=== PATIENT | female | born 1995 | race Caucasian/White ===

== ENCOUNTER 2019-08-05 16:39 | Emergency (ER) | payer BC ==
[~2019-08-05] VITALS: Ht 162.6 cm; Wt 48.1 kg
[2019-08-05 16:43] VITALS: BP_SYST 125
--- NOTE | 2019-08-05 17:05 | NUR ---
Note mo in EDM - 08/05/19 at 1712 by SARTHAK Patient presented to ER with vaginal cramping and spotting today. Patient A&Ox4, afebrile, skin pink and warm, ambulatory to ER, arrived with . Patient stated she had spotting and cramping today, she contacted OB office. OB office referred pt to ER. Patient denies pain at this time, denies cramping at this time, patient denies spotting at this time.
--- NOTE | 2019-08-05 17:05 | NUR ---
Patient presented to ER with vaginal cramping and spotting today, 7 weeks . Patient A&Ox4, afebrile, skin pink and warm, ambulatory to ER, arrived with . Patient stated she had spotting and cramping today, she contacted OB office. OB office referred pt to ER. Patient denies pain at this time, denies cramping at this time, patient denies spotting at this time.
--- NOTE | 2019-08-05 17:08 | NUR ---
venipuncture at bedside for lab specimen collection
--- NOTE | 2019-08-05 17:10 | NUR ---
CONI Alas examining patient.
--- NOTE | 2019-08-05 17:28 | NUR ---
Patient to radiology with staff.
[2019-08-05 17:45] LABS: CALCIUM 9.1 mg/dL (8.4-11.0); POTASSIUM 3.5 mmol/L (3.5-5.1)
[2019-08-05 17:46] LABS: CREATININE 0.59 mg/dL (0.55-1.30)
[2019-08-05 17:48] LABS: BASOPHILS % (AUTO) 0.2 % (0.0-2.0); EOSINOPHILS # (AUTO) 0.2 K/uL (0.0-0.4); EOSINOPHILS % (AUTO) 2.2 % (0.0-4.0); HEMATOCRIT 38.3 % (36-48); HEMOGLOBIN 13.3 g/dL (12.0-16.0); LYMPHOCYTES # (AUTO) 2.4 K/uL (1.0-5.5); LYMPHOCYTES % (AUTO) 21.4 % (20.5-51.5); MEAN CORPUSCULAR HEMOGLOBIN 31 pg (27-31); MEAN CORPUSCULAR HGB CONC 35 % (32-36); MEAN CORPUSCULAR VOLUME 90 fL (79.0-98.0); MONOCYTES # (AUTO) 0.5 K/uL (0.0-1.0); MONOCYTES % (AUTO) 4.7 % (1.7-9.3); NEUTROPHILS # (AUTO) 7.8 K/uL (1.8-7.7); NEUTROPHILS % (AUTO) 71.5 % (40.0-70.0); PLATELET COUNT (AUTO) 330 K/uL (130-430); RED BLOOD CELL COUNT(AUTO) 4.24 MIL/uL (4.2-6.2); RED CELL DISTRIBUTION WIDTH 12.6 % (9.0-15.0)
[2019-08-05 18:00] LABS: CLARITY/URINE CLEAR (CLEAR); COLOR,URINE YELLOW (YELLOW); PH,URINE 5.5 (5.0-8.0)
[2019-08-05 18:01] LABS: BILIRUBIN,URINE NEGATIVE (NEGATIVE); BLOOD, URINE NEGATIVE (NEGATIVE); GLUCOSE,URINE NEGATIVE (NEGATIVE); KETONES,URINE NEGATIVE (NEGATIVE); LEUKOCYTE ESTERASE ,URINE TRACE (NEGATIVE); NITRITE, URINE NEGATIVE (NEGATIVE); PROTEIN URINE NEGATIVE (NEGATIVE); UROBILINOGEN,URINE 0.2 (0.2-1.0)
[2019-08-05 18:12] LABS: TOTAL BILIRUBIN 0.3 mg/dL (0.0-1.0)
[2019-08-05 18:16] LABS: BACTERIA,URINE FEW /HPF (None Seen); MUCUS,URINE None Seen /LPF (None Seen); RBC,URINE 0-3 /HPF (0-3); WBC,URINE 0-3 /HPF (0-3)
[2019-08-05] MEDS ORDERED: NITROFURANTOIN MONOHYD/M-CRYST 100 MG CAPSULE PO ONE (19:00)
[2019-08-05 19:05] VITALS: BP_SYST 122
--- NOTE | 2019-08-05 19:05 | NUR ---
Patient given written and verbal discharge instructions and verbalizes understanding. ER MD discussed with patient the results and treatment provided. Patient in stable condition. ID arm band removed. Rx of MACROBID given. Patient educated on pain management and to follow up with PMD. Pain Scale 0/10. Opportunity for questions provided and answered. Medication side effect fact sheet provided.
--- NOTE | 2019-08-05 19:11 | NUR ---
Rhonda hassan in [facility] - 08/05/19 at 1912 by SDEDTD REPORT TO EVE FLORIAN
== END 2019-08-05 19:05 | disposition home or self-care (01) ==
LOC: SED 16:39
DX: O20.0 Threatened abortion (principal); O23.11 Infections of bladder in pregnancy, first trimester; O26.891 Other specified pregnancy related conditions, first trimester; D72.829 Elevated white blood cell count, unspecified; R03.0 Elevated blood-pressure reading, without diagnosis of hypertension; Z3A.01 Less than 8 weeks gestation of pregnancy
CPT/HCPCS: 36415; 76801; 76817; 80053; 81000-TC; 81025; 84702-TC; 85025; 86900; 86901; 87086; 99284

== ENCOUNTER 2022-10-02 16:29 | Emergency (ER) | payer SELFPAY ==
[~2022-10-02] VITALS: Ht 162.6 cm; Wt 49.0 kg
[2022-10-02 16:37] VITALS: BP_SYST 121
--- NOTE | 2022-10-02 16:40 | NUR ---
Patient triaged and placed in waiting room. VSS and patient appears in no acute distress at this time. Accompanied by SELF, awaiting available bed, and MD notified of need for MSE.
--- NOTE | 2022-10-02 17:10 | NUR ---
ER DR. MIRELES EXAMINING PT IN TRIAGE
[2022-10-02] MEDS ORDERED: KETOROLAC TROMETHAMINE 30 MG VIAL IM ONE (17:45)
[2022-10-02] MEDS ORDERED: AUG875 PO (17:46)
[2022-10-02] MEDS ORDERED: IBUP-1971 PO (17:46)
[2022-10-02] MEDS ORDERED: KETOROLAC TROMETHAMINE 30 MG VIAL ONE (18:23)
[2022-10-02 18:34] VITALS: BP_SYST 121
--- NOTE | 2022-10-02 18:35 | NUR ---
Patient given written and verbal discharge instructions and verbalizes understanding. ER MD discussed with patient the results and treatment provided. Patient in stable condition. ID arm band removed. Rx of AUGMENTIN AND MOTRIN given. Patient educated on pain management and to follow up with PMD. Pain Scale 0/10. Opportunity for questions provided and answered. Medication side effect fact sheet provided.
== END 2022-10-02 18:34 | disposition home or self-care (01) ==
LOC: SED 16:29
DX: S50.871A Other superficial bite of right forearm, initial encounter (principal); Z79.899 Other long term (current) drug therapy; Y04.1XXA Assault by human bite, initial encounter; Y93.89 Activity, other specified; Y92.89 Other specified places as the place of occurrence of the external cause; Y99.8 Other external cause status
CPT/HCPCS: 99283; 96372; J1885